=== PATIENT | female | born 1980 | race Hispanic/Latino ===

== ENCOUNTER → 2021-03-01 | Outpatient (CLI) | payer MEDICAID ==
[~2021-03-01] MED LIST: DOCU240C80 PO; IBUP-1493 PO; PREN1TAB89 PO; TYL3 PO; [UNRECOGNIZED DRUG - CODE] PO
== END | disposition home or self-care (01) ==
LOC: SHCH 16:07
PROVIDERS: ATTEND Internal Medicine Cardiovascular Disease
DX: I10 Essential (primary) hypertension (principal); R07.9 Chest pain, unspecified
CPT/HCPCS: 93306